=== PATIENT | male | born 1950 | race Caucasian/White ===

== ENCOUNTER → 2020-05-08 | Outpatient (CLI) | payer OTHER ==
[~2020-05-08] MED LIST: BRINTELLIX10 MG PO; CYCLOBENZAPRINE5 MG PO; FLOMAX0.4 MG PO; LIPITOR40 MG PO; LISINOPRIL20 MG PO; NORCO 10-325 T1 EACH PO; REXULTI4 MG PO; TOPAMAX 25 MG T25 M1 PO; [UNRECOGNIZED DRUG - OTHER] PO; [UNRECOGNIZED DRUG - OTHER] PO
== END ==
LOC: LAB 08:29
PROVIDERS: ATTEND Anesthesiology
DX: Z01.812 Encounter for preprocedural laboratory examination (principal); Z20.822 Contact with and (suspected) exposure to COVID-19